=== PATIENT | female | born 1980 | race Caucasian/White ===

== ENCOUNTER 2016-04-22 23:18 | Inpatient (IN) | payer MEDICARE, OTHER ==
--- NOTE | ~2016-04-22 | DS ---
Unit #: [id number] #: [id number] Patient: EMILY RICH [id number] [place] [address] [id number] MR#: [id number] NAME: EMILY RICH ROOM: P177 Age: 36 Sex: F Admission Date: 04/22/2016 : 1980 Discharge Date: 04/26/2016 Attending Physician: Korey Wilson M.D. Primary Care Physician: Primary Care Physician No DISCHARGE SUMMARY REASON FOR ADMISSION The patient is a 36-year-old white female, admitted to the [facility] unit with a history of increasing alcohol use and depressed mood. HOSPITAL COURSE The patient was admitted to the [address] [place] [address] and placed on a routine detoxification protocol for alcohol. Home medications were continued. Her detox was an uneventful one. Consideration was undertaken for residential chemical dependency treatment either at an [facility] facility or at [facility]. By 04/26/2016, however, the patient has decided to return to [place] and requested discharge and it was so ordered. FINAL DIAGNOSES Alcohol use disorder; opioid use disorder; mood disorder, unspecified; chronic obstructive pulmonary disease; gastroesophageal reflux disease. DISPOSITION ON DISCHARGE The patient is discharged on the following medications; Zoloft 100 mg daily for depression, Invega 3 mg at h.s. for mood stabilization, Vistaril 50 mg q.8 hours p.r.n. anxiety, Motrin 600 mg q.6 hours p.r.n. pain, Zantac 150 mg b.i.d. for GERD, Proventil HFA p.r.n. shortness of air, Neurontin 600 mg q.6 hours for anxiety, Advair Diskus one puff b.i.d. for COPD. DISCHARGE INSTRUCTIONS No dietary or physical restrictions were placed upon the patient at the time of discharge. FOLLOWUP Followup will take place through the auspices of community mental health resources. PROGNOSIS The patient's prognosis is considered fair. Dictated by... Korey Wilson M.D. CB/avelinal Unit #: [id number] #: [id number] Patient: EMILY RICH TD: 04/26/2016 22:15 JOB #: [id number] DISCHARGE SUMMARY X Korey Wilson MD DISCHARGE SUMMARY
--- NOTE | ~2016-04-22 | PN ---
Unit #: [id number] #: [id number] Patient: EMILY RICH [id number] [facility] [address] [place] [address] [id number] MR#: [id number] NAME: EMILY RICH ROOM: [facility] Age: 36 Sex: F Admission Date: 04/22/2016 : 1980 Attending Physician: Korey Wilson M.D. Admitting Physician: Korey Wilson M.D. Primary Care Physician: Primary Care Physician Marivel APONTE PROGRESS NOTES DATE 04/25/2016 DISCUSSION The patient is scheduled for an interview with "[facility]" for residential chemical dependence treatment in the morning and it is our hope that she will be admitted to that facility shortly thereafter. Dictated by... Korey Wilson M.D. CB/clotilde TD: 04/25/2016 16:24 JOB #: [id number] FADI LYON NOTES X Korey Wilson MD PROGRESS NOTE
--- NOTE | ~2016-04-22 | HP ---
Unit #: [id number] #: [id number] Patient: EMILY RICH [id number] [place] [address] [id number] MR#: [id number] NAME: EMILY RICH ROOM: P177 Age: 36 Sex: F Admission Date: 04/22/2016 : 1980 Attending Physician: Korey Wilson M.D. Admitting Physician: Korey Wilson M.D. Primary Care Physician: Primary Care Physician No HISTORY AND PHYSICAL HISTORY OF PRESENT ILLNESS Emily is a 36 year old admitted to [facility] because of her abuse of alcohol. She has had other admissions to this facility for the same. PAST MEDICAL HISTORY 1. Long history of alcohol abuse. 2. History of withdrawal seizures. 3. Asthma. 4. Peptic ulcer disease. a. History of upper GI bleed. PAST SURGICAL HISTORY 1. section x4. 2. Surgical I & D of numerous abscesses. ALLERGIES Codeine, morphine. SOCIAL HISTORY Smokes one pack per day. Drinks at least 16 beers on a daily basis and has a history of illicit drug use. FAMILY HISTORY Medically noncontributory. REVIEW OF SYSTEMS CONSTITUTIONAL: No fever or chills. HEENT: Denies any sore throat, ear pain or runny nose. CARDIOVASCULAR: Denies chest pain, irregular heart rhythm or palpitations. CHEST: Denies shortness of breath or cough. No hemoptysis. GASTROINTESTINAL: Denies nausea, vomiting, diarrhea or chronic constipation. ENDOCRINE: Denies history of increased thirst or urination. No recent significant weight loss or gain. GENITOURINARY: Denies dysuria, frequency, or hematuria. SKIN: Denies any rashes. HEMATOLOGIC: Denies history of increased bleeding or bruising. MUSCULOSKELETAL: Denies any hot, swollen joints. No generalized muscle pain. NEUROLOGIC: Denies problems with vision or speech. No frequent, severe headaches. No numbness, tingling or weakness in any extremities. Denies Unit #: [id number] #: [id number] Patient: EMILY RICH loss of bladder or bowel control. CURRENT MEDICATIONS 1. Detox protocol 2. Invega 3 mg daily 3. Zoloft 100 mg daily 4. Catapres 0.1 mg b.i.d. PHYSICAL EXAMINATION GENERAL: Alert, well-nourished, in no apparent distress. VITAL SIGNS: Blood pressure 140/82, heart rate 88, respirations 16, temperature 98.6. WEIGHT: 190 pounds. HEIGHT: 5'9". SKIN: Warm and dry without rash or lesion. HEENT: Normocephalic. TMs not viewed. Oral and nasal passages clear. Conjunctivae clear. Pupils equal, round and reactive to light and accommodation. Extraocular movements intact. NECK: Supple without lymphadenopathy or thyromegaly. HEART: Regular rate and rhythm without murmur. LUNGS: Clear. ABDOMEN: Soft, nontender. : Not done. EXTREMITIES: No evidence of cyanosis, clubbing or edema. Moves all extremities without focal deficit. NEUROLOGICAL: Grossly within normal limits. Cranial Nerves: II: Visual torres are intact. III, IV AND : Extraocular movements are intact. Pupils are equal, round and reactive to light. V: Facial sensation is grossly normal. VII: Facial movements and expression are normal. VIII: Auditory acuity grossly intact. IX, X: Uvula is midline. Phonation is normal. XI: Patient shrugs shoulders and turns head normally. XII: Tongue protrudes in the midline. Sensory and Motor Function: Sensory and motor sensation is grossly normal. Motor: moves all extremities well. Coordination: Gait is normal. Deep Tendon Reflexes: Intact. IMPRESSION Psychiatric admission RECOMMENDATIONS PSYCHIATRIC: Per psychiatrist. MEDICAL: I see no contraindications to participating in facility's activities. MEDICAL PROGNOSIS Good. MEDICAL CONDITION Stable. Dictated by... Ml LagunasANyla. for Unit #: [id number] #: [id number] Patient: EMILY RICH Vipin Beaulieu TD: 04/24/2016 00:03 JOB #: [id number] HISTORY AND PHYSICAL X Heaven Nickerson X HISTORY AND PHYSICAL
--- NOTE | ~2016-04-22 | PN ---
Unit #: [id number] #: [id number] Patient: EMILY RICH [id number] [facility] [address] [place] [address] [id number] I MR#: [id number] NAME: EMILY RICH ROOM: [facility] Age: 36 Sex: F Admission Date: 04/22/2016 : 1980 Attending Physician: Korey Wilson M.D. Admitting Physician: Korey Wilson M.D. Primary Care Physician: Primary Care Physician Marivel LYON NOTES DATE 04/24/2016 DISCUSSION The patient is abed resting comfortably today. she exhibits little in the way of signs or symptoms of withdrawal. 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 for residential dual diagnosis treatment. Dictated by... Korey Wilson M.D. CB/tari TD: 04/24/2016 23:24 JOB #: [id number] FADI LYON NOTES X Korey Wilson MD PROGRESS NOTE
--- NOTE | ~2016-04-22 | PA ---
Unit #: [id number] #: [id number] Patient: EMILY RICH [id number] [facility] [address] [place] [address] [id number] I MR#: [id number] NAME: EMILY RICH ROOM: 77 Age: 36 Sex: F Admission Date: 04/22/2016 : 1980 Date of Assessment: 04/23/2016 Attending Physician: Korey Wilson M.D. Admitting Physician: Korey Wilson M.D. Primary Care Physician: Primary Care Physician No PSYCHIATRIC ASSESSMENT IDENTIFYING INFORMATION The patient is a 36-year-old homeless white female admitted to the hospital after presenting to [facility] with increasing alcohol use. CHIEF COMPLAINT None given. INFORMANT The patient and chart. RELIABILITY Good. HISTORY OF PRESENT ILLNESS The patient is a 36-year-old white female with a long history of alcohol and opioid dependence. The patient presented to [facility] in [place] last evening with a CIWA score of 26, a pulse of 110 and a blood pressure of 152/77. The patient reports multiple previous treatment courses having taken place at [facility] and at the "[facility]" in [place]. She hopes to return to that facility upon her discharge from this facility. The patient reports that she is homeless and living in a shed. She is the mother of five out of wedlock children none of whom she has custody. The patient reports that she takes Invega for reasons which are unclear. She also taken sertraline and is prescribed Suboxone secondary to her history of opioid dependence. When seen today the patient denies suicidal or homicidal ideation and is future oriented. She does express disappointment that her Suboxone will not be reinitiated. PAST PSYCHIATRIC HISTORY As above. PAST MEDICAL HISTORY Significant for history of obesity, gastroesophageal reflux disease, asthma. MEDICATIONS 1. Neurontin 2. Hydroxyzine 3. Sertraline 4. Advair 5. Ventolin 6. Ranitidine Unit #: [id number] #: [id number] Patient: EMILY RICH 7. Suboxone 8. Invega ALLERGIES Codeine, acetaminophen, morphine. FAMILY HISTORY Noncontributory SOCIAL HISTORY The patient has been homeless for the past two months after having been incarcerated in [facility]. The patient reports substance use as noted previously and is a smoker. MENTAL STATUS EXAMINATION At this time reveals the patient to be an obese white female, appearing her stated age. She is in no apparent physical distress at the time of examination. She is awake, alert, and oriented in all spheres. Her mood is mildly dysphoric. Her affect congruent. Speech is generally relevant and coherent. There are no gross deficits in memory or cognition noted. Intelligence is judged to be in the average range based on fund of knowledge. The patient is cooperative throughout the interview. She currently reports no suicidal or homicidal ideation or psychotic features. Judgment and insight appear to be reasonably intact. ASSETS AND LIABILITIES ASSETS: Motivation for change. LIABILITIES: Lack of resources. DIAGNOSTIC IMPRESSION 1. Alcohol use disorder. 2. Opioid use disorder. 3. Mood disorder unspecified. 4. Chronic obstructive pulmonary disease. 5. Gastroesophageal reflux disease. PSYCHIATRIC PLAN/TREATMENT GOALS The patient remains hospitalized for safety and stabilization. A routine detoxification protocol that will cover both alcohol and opioids has been initiated. The patient will participate in appropriate magana and milieu activities with an estimate length of stay in the hospital of three to five days. Dictated by... Korey Wilson M.D. ROSIO/tari TD: 04/23/2016 22:47 JOB #: [id number] Unit #: [id number] #: [id number] Patient: EMILY RICH PSYCHIATRIC ASSESSMENT X Korey Wilson MD X PSYCHIATRIC ASSESSMENT
[2016-04-23 10:13] LABS: THYROID STIMULATING HORMONE 5.95 uIU/ml (0.34-5.60)
[2016-04-23 10:19] LABS: FREE THYROXIN (T4) 0.71 ng/dL (0.58-1.64)
== END 2016-04-26 15:10 | disposition home or self-care (01) | DRG 897 ==
LOC: P1E 23:18
PROVIDERS: Specialist
PROC: HZ2ZZZZ Detoxification Services for Substance Abuse Treatment (ICD-10-PCS; principal; 2016-04-23)
DX: F10.20 Alcohol dependence, uncomplicated (principal); F11.20 Opioid dependence, uncomplicated; F39 Unspecified mood [affective] disorder; J44.9 Chronic obstructive pulmonary disease, unspecified; K21.9 Gastro-esophageal reflux disease without esophagitis; J45.909 Unspecified asthma, uncomplicated; Z87.11 Personal history of peptic ulcer disease; F17.210 Nicotine dependence, cigarettes, uncomplicated
CPT/HCPCS: 84439; 84443; 84703; 86592